=== PATIENT | female | born 1970 | race Caucasian/White ===

== ENCOUNTER 2016-12-10 12:36 | Emergency (ER) | payer MEDICAID ==
[~2016-12-10] VITALS: Ht 160 cm; Wt 79.9 kg
[2016-12-10 12:38] VITALS: BP 152/85
[2016-12-10] MEDS ORDERED: PROPARACAINE OPHTH 0.5%, 15ML ONE (12:47)
[2016-12-10] MEDS ORDERED: FLUORESCEIN OPHTHALMIC 1 MG STRIP ONE (12:47)
== END 2016-12-10 14:06 | disposition home or self-care (01) ==
LOC: ED 14:00
DX: H10.31 Unspecified acute conjunctivitis, right eye (principal)
CPT/HCPCS: 99283

== ENCOUNTER 2018-07-11 15:48 | Inpatient (IN) | payer MEDICAID, OTHER ==
[~2018-07-11] VITALS: Ht 161.3 cm; Wt 83.8 kg
[~2018-07-11 15:48] MED LIST: CEFOTETAN 2 GM ONE; DEXAMETHASONE 4 MG/ML, 1ML ONE; EPHEDRINE 50 MG/ML, 1ML ONE; GLYCOPYRROLATE 0.2MG/1ML, 5ML ONE; KETOROLAC 30 MG/1 ML ONE; NEOSTIGMINE 1 MG/ML, 10ML ONE; ROCURONIUM 10MG/ML,5ML ONE
[2018-07-11] MEDS ORDERED: BUPIVACAINE/PF-EPI 0.25% 1:200K SQ ONE (16:30)
[2018-07-11] MEDS ORDERED: LIDOCAINE 2%, 20ML SQ ONE (16:30)
[2018-07-11] MEDS ORDERED: CEFTRIAXONE PMX 1GM/50ML 50 ML ONE (16:47)
[2018-07-11] MEDS ORDERED: MORPHINE SULFATE 4 MG/ML, 1ML ONE ×2 (16:56→18:50)
[2018-07-11] MEDS ORDERED: ONDANSETRON 2MG/ML, 2ML ONE ×2 (16:57→20:25)
[2018-07-11 16:58] LABS: BASOPHILS # (AUTO) 0.03 x10^3/uL (0-0.1); BASOPHILS % (AUTO) 0 % (0-1); EOSINOPHILS # (AUTO) 0.19 x10^3/uL (0-0.4); EOSINOPHILS % (AUTO) 2 % (1-7); LYMPHOCYTES # (AUTO) 1.98 x10^3/uL (1-3.4); LYMPHOCYTES % (AUTO) 18 % (22-44); MD NO; MEAN CORPUSCULAR HGB CONC 33.4 g/dL (32.4-35.8); MEAN CORPUSCULAR VOLUME 92.8 fL (80-100); MEAN PLATELET VOLUME 7.5 fL (7.4-10.4); MONOCYTES # (AUTO) 0.62 x10^3/uL (0.2-0.8); MONOCYTES % (AUTO) 6 % (2-9); NEUTROPHILS # (AUTO) 8.32 x10^3/uL (1.8-6.8); NEUTROPHILS % (AUTO) 75 % (42-75); PLATELET COUNT 342 x10^3/uL (130-400); RED BLOOD COUNT 5.03 x10^6/uL (3.82-5.3); RED CELL DISTRIBUTION WIDTH 14.3 % (9.6-15.2)
[2018-07-11] MEDS ORDERED: CEFTRIAXONE PMX 1GM/50ML 50 ML IVPB ONE (17:00)
[2018-07-11] MEDS ORDERED: ONDANSETRON 2MG/ML, 2ML IVPush ONE (17:00)
[2018-07-11] MEDS ORDERED: VANCOMYCIN 1,600 MG in SODIUM CHLORIDE 0.9% 250 ML IV ONE (17:00)
[2018-07-11] MEDS ORDERED: SODIUM CHLORIDE FLUSH 10ML SYR IVF ONE (17:00)
[2018-07-11] MEDS ORDERED: VANCOMYCIN PER PHARMACY IV ONE (17:00)
[2018-07-11] MEDS: MORPHINE SULFATE 4 MG/ML, 1ML IV PRN ×2 (17:06→18:57)
[2018-07-11 17:10] LABS: ALBUMIN 4.8 g/dL (3.4-5.0); ANION GAP 7 mmol/L (5-15); CALCIUM 9.3 mg/dL (8.5-10.1); CHLORIDE 107 mmol/L (98-107)
[2018-07-11 17:13] LABS: ALANINE AMINOTRANSFERASE 35 U/L (12-78); ALKALINE PHOSPHATASE 81 U/L (45-117); BILIRUBIN,TOTAL 0.6 mg/dL (0.2-1.0); CREATININE 0.89 mg/dL (0.55-1.02); TOTAL PROTEIN 8.4 g/dL (6.4-8.2)
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
[2018-07-11] MEDS ORDERED: BISACODYL 10 MG SUPP PR PRN (18:00)
[2018-07-11] MEDS ORDERED: ONDANSETRON ODT 4 MG PO PRN (18:00)
[2018-07-11] MEDS ORDERED: VANCOMYCIN PER PHARMACY MC PRN (18:00)
[2018-07-11] MEDS ORDERED: MORPHINE SULFATE 4 MG/ML, 1ML IVPush PRN (18:00)
[2018-07-11] MEDS ORDERED: HYDROcodone/APAP 5/325 TABLET PO PRN (18:00)
[2018-07-11] MEDS ORDERED: ENALAPRILAT 1.25 MG/ML, 2ML IVPush PRN (18:00)
[2018-07-11] MEDS ORDERED: DOCUSATE 100 MG CAPSULE PO PRN (18:00)
[2018-07-11] MEDS ORDERED: POLYETHYLENE GLYCOL 17 GM PACKET PO PRN (18:00)
[2018-07-11] MEDS ORDERED: LABETALOL 5MG/ML, 20ML IVPush PRN (18:00)
--- NOTE | 2018-07-11 18:20 | NUR ---
DR. LUCIANO AT THE BEDSIDE TO DISCUSS SURGERY WITH THE PT. VSS.
--- NOTE | 2018-07-11 18:35 | NUR ---
REPORT TO ROXANA WILKES.
--- NOTE | 2018-07-11 18:37 | NUR ---
PT MOVED FROM E8 TO ROOM 16. VS UPDATED AND WNL.
[2018-07-11] MEDS ORDERED: BUPIVACAINE/PF 0.5% ONE (19:11)
--- NOTE | 2018-07-11 19:16 | NUR ---
tubal ligation in 2005 per pt
[2018-07-11] MEDS ORDERED: PHARMACOKINETIC MONITORING MC PRN (19:30)
[2018-07-11] MEDS ORDERED: FENTANYL PF 100 MCG/2ML ONE ×2 (19:55→20:41)
[2018-07-11] MEDS ORDERED: MIDAZOLAM 1 MG/ML, 2ML ONE (19:55)
[2018-07-11] MEDS ORDERED: LIDOCAINE 2%, 6 ML JEL.PF.APP MM ONE (19:57)
[2018-07-11] MEDS ORDERED: PROPOFOL 10 MG/ML, 20ML ONE (20:25)
[2018-07-11] MEDS ORDERED: DEXAMETHASONE 4 MG/ML, 1ML ONE (20:25)
[2018-07-11] MEDS ORDERED: CEFAZOLIN 1,000 MG ONE (20:25)
[2018-07-11] MEDS ORDERED: ACETAMINOPHEN 325 MG TABLET PO PRN (20:30)
[2018-07-11] MEDS ORDERED: ALBUTEROL/IPRATROPIUM 2.5MG/0.5MG, 3 ML NPPB PRN (20:30)
[2018-07-11] MEDS ORDERED: MIDAZOLAM 1 MG/ML, 2ML IV PRN (20:30)
[2018-07-11] MEDS ORDERED: OXYcodone 5 MG/5 ML ORAL.SOL UDC PO PRN (20:30)
[2018-07-11] MEDS ORDERED: ONDANSETRON 2MG/ML, 2ML IV PRN (20:30)
[2018-07-11] MEDS ORDERED: PROMETHAZINE 25 MG/ML, 1ML IV PRN (20:30)
[2018-07-11] MEDS ORDERED: HYDROmorphone 2 MG/ML, 1ML IVPush PRN (20:30)
[2018-07-11] MEDS ORDERED: SCOPOLAMINE PATCH, 1.5MG PATCH.TD72 TD PRN (20:30)
[2018-07-11] MEDS ORDERED: MEPERIDINE/PF 25MG/0.5ML IVPush PRN (20:30)
[2018-07-11] MEDS ORDERED: OXYcodone 5 MG/5 ML ORAL.SOL UDC ONE (20:41)
[2018-07-11] MEDS: FENTANYL PF 100 MCG/2ML IV PRN ×2 (20:45→20:51)
[2018-07-11] MEDS ORDERED: HYDROmorphone 1 MG/ML, 1ML AMP ONE (20:55)
[2018-07-11 21:34] VITALS: BP 155/87
[2018-07-11] MEDS ORDERED: HYDROmorphone 1 MG/ML, 1ML AMP IV PRN (22:30)
[2018-07-11] MEDS ORDERED: HYDROmorphone 2 MG/ML, 1ML ONE (23:14)
[2018-07-11] MEDS: SODIUM CHLORIDE 0.9% 1,000 ML IV SCH (23:38)
[2018-07-11] MEDS: NICOTINE 14MG/24 HR PATCH.TD24 TD SCH (23:38)
[2018-07-12] MEDS: AMPICILLIN/SULBACTAM 3 GM in SODIUM CHLORIDE 0.9% 100 ML IV SCH ×2 (00:59→08:19)
[2018-07-12 01:40] VITALS: BP 125/73
[2018-07-12] MEDS: HYDROcodone/APAP 10/325 MG TABLET PO PRN ×4 (03:29→21:22)
[2018-07-12 05:29] LABS: BASOPHILS # (AUTO) 0.01 x10^3/uL (0-0.1); BASOPHILS % (AUTO) 0 % (0-1); EOSINOPHILS % (AUTO) 0 % (1-7); LYMPHOCYTES # (AUTO) 0.55 x10^3/uL (1-3.4); LYMPHOCYTES % (AUTO) 6 % (22-44); MD NO; MEAN CORPUSCULAR HEMOGLOBIN 31.6 pg (27.0-34.8); MEAN CORPUSCULAR HGB CONC 33.8 g/dL (32.4-35.8); MEAN CORPUSCULAR VOLUME 93.3 fL (80-100); MEAN PLATELET VOLUME 7.6 fL (7.4-10.4); MONOCYTES # (AUTO) 0.09 x10^3/uL (0.2-0.8); MONOCYTES % (AUTO) 1 % (2-9); NEUTROPHILS % (AUTO) 93 % (42-75); PLATELET COUNT 303 x10^3/uL (130-400); RED BLOOD COUNT 4.32 x10^6/uL (3.82-5.3); RED CELL DISTRIBUTION WIDTH 14.4 % (9.6-15.2)
[2018-07-12 05:36] LABS: ANION GAP 3 mmol/L (5-15); CALCIUM 8.4 mg/dL (8.5-10.1); CHLORIDE 108 mmol/L (98-107)
[2018-07-12 05:37] LABS: CREATININE 0.91 mg/dL (0.55-1.02)
[2018-07-12] MEDS: VANCOMYCIN 1,600 MG in SODIUM CHLORIDE 0.9% 250 ML IV SCH ×2 (06:30→18:06)
[2018-07-12 06:34] VITALS: BP 114/73
[2018-07-12] MEDS ORDERED: AMPICILLIN/SULBACTAM 3 GM in SODIUM CHLORIDE 0.9% 50 ML IV SCH (08:29)
[2018-07-12] MEDS: SODIUM CHLORIDE 0.9% 1,000 ML IV SCH (09:42)
[2018-07-12 13:06] LABS: HEMOGLOBIN A1C 5.7 % (4.2-6.3)
[2018-07-12] MEDS: CALCIUM CARBONATE 500 MG TAB.CHEW PO PRN ×3 (13:43→21:14)
[2018-07-12] MEDS: AMPICILLIN/SULBACTAM 3 GM in SODIUM CHLORIDE 0.9% 50 ML IV SCH ×2 (13:51→19:55)
[2018-07-12 13:55] VITALS: BP 115/73
[2018-07-12 19:08] VITALS: BP 97/51
[2018-07-12] MEDS: NICOTINE 14MG/24 HR PATCH.TD24 TD SCH (21:15)
[2018-07-13 01:12] VITALS: BP 132/83
[2018-07-13] MEDS: CALCIUM CARBONATE 500 MG TAB.CHEW PO PRN (02:05)
[2018-07-13] MEDS: HYDROcodone/APAP 10/325 MG TABLET PO PRN ×4 (02:11→19:55)
[2018-07-13] MEDS: AMPICILLIN/SULBACTAM 3 GM in SODIUM CHLORIDE 0.9% 50 ML IV SCH ×5 (02:11→21:38)
[2018-07-13] MEDS: VANCOMYCIN 1,600 MG in SODIUM CHLORIDE 0.9% 250 ML IV SCH ×2 (06:20→18:57)
[2018-07-13 07:53] VITALS: BP 124/75
[2018-07-13 13:40] VITALS: BP 130/80
[2018-07-13 19:29] VITALS: BP 137/85
[2018-07-13] MEDS: NICOTINE 14MG/24 HR PATCH.TD24 TD SCH (21:38)
[2018-07-14 01:46] VITALS: BP 129/76
[2018-07-14] MEDS: AMPICILLIN/SULBACTAM 3 GM in SODIUM CHLORIDE 0.9% 50 ML IV SCH ×4 (02:58→21:02)
[2018-07-14] MEDS: ONDANSETRON 2MG/ML, 2ML IVPush PRN (04:06)
[2018-07-14] MEDS: VANCOMYCIN 1,600 MG in SODIUM CHLORIDE 0.9% 250 ML IV SCH (06:16)
[2018-07-14] MEDS: HYDROcodone/APAP 10/325 MG TABLET PO PRN (06:16)
[2018-07-14 06:22] LABS: ANION GAP 2 mmol/L (5-15); CALCIUM 8.5 mg/dL (8.5-10.1); CHLORIDE 107 mmol/L (98-107); CREATININE 0.74 mg/dL (0.55-1.02)
[2018-07-14 06:31] LABS: BASOPHILS # (AUTO) 0.03 x10^3/uL (0-0.1); BASOPHILS % (AUTO) 0 % (0-1); EOSINOPHILS % (AUTO) 2 % (1-7); LYMPHOCYTES # (AUTO) 2.58 x10^3/uL (1-3.4); LYMPHOCYTES % (AUTO) 30 % (22-44); MD NO; MEAN CORPUSCULAR HEMOGLOBIN 31.9 pg (27.0-34.8); MEAN CORPUSCULAR HGB CONC 33.9 g/dL (32.4-35.8); MEAN CORPUSCULAR VOLUME 93.9 fL (80-100); MONOCYTES % (AUTO) 7 % (2-9); NEUTROPHILS # (AUTO) 5.33 x10^3/uL (1.8-6.8); NEUTROPHILS % (AUTO) 61 % (42-75); PLATELET COUNT 263 x10^3/uL (130-400); RED BLOOD COUNT 3.62 x10^6/uL (3.82-5.3); RED CELL DISTRIBUTION WIDTH 14.6 % (9.6-15.2)
[2018-07-14 14:48] VITALS: BP 171/98
[2018-07-14 20:08] VITALS: BP 144/82
[2018-07-14] MEDS: NICOTINE 14MG/24 HR PATCH.TD24 TD SCH (21:02)
[2018-07-15] MEDS: AMPICILLIN/SULBACTAM 3 GM in SODIUM CHLORIDE 0.9% 50 ML IV SCH ×2 (02:53→09:44)
[2018-07-15 02:56] VITALS: BP 151/93
[2018-07-15] MEDS: ACETAMINOPHEN 325 MG TABLET PO PRN ×2 (02:58→09:58)
[2018-07-15] MEDS: CALCIUM CARBONATE 500 MG TAB.CHEW PO PRN (02:58)
[2018-07-15 06:05] LABS: BASOPHILS # (AUTO) 0.03 x10^3/uL (0-0.1); BASOPHILS % (AUTO) 0 % (0-1); EOSINOPHILS # (AUTO) 0.16 x10^3/uL (0-0.4); EOSINOPHILS % (AUTO) 2 % (1-7); LYMPHOCYTES # (AUTO) 2.02 x10^3/uL (1-3.4); LYMPHOCYTES % (AUTO) 29 % (22-44); MD NO; MEAN CORPUSCULAR HEMOGLOBIN 31.7 pg (27.0-34.8); MEAN CORPUSCULAR HGB CONC 34.2 g/dL (32.4-35.8); MEAN CORPUSCULAR VOLUME 92.7 fL (80-100); MEAN PLATELET VOLUME 7.9 fL (7.4-10.4); MONOCYTES % (AUTO) 9 % (2-9); NEUTROPHILS # (AUTO) 4.08 x10^3/uL (1.8-6.8); NEUTROPHILS % (AUTO) 59 % (42-75); PLATELET COUNT 275 x10^3/uL (130-400); RED BLOOD COUNT 3.74 x10^6/uL (3.82-5.3); RED CELL DISTRIBUTION WIDTH 13.9 % (9.6-15.2)
[2018-07-15 06:10] LABS: CHLORIDE 103 mmol/L (98-107)
[2018-07-15 06:20] LABS: ALANINE AMINOTRANSFERASE 62 U/L (12-78); ALBUMIN 3.1 g/dL (3.4-5.0); ALKALINE PHOSPHATASE 68 U/L (45-117); ANION GAP 4 mmol/L (5-15); BILIRUBIN,TOTAL 0.4 mg/dL (0.2-1.0); CALCIUM 8.7 mg/dL (8.5-10.1); CREATININE 0.84 mg/dL (0.55-1.02); TOTAL PROTEIN 6.2 g/dL (6.4-8.2)
[2018-07-15] MEDS: ONDANSETRON 2MG/ML, 2ML IVPush PRN (06:21)
[2018-07-15 06:31] LABS: HCT (SEDRATE) 34.7 % (34.6-47.8)
[2018-07-15 08:59] VITALS: BP 167/94
[2018-07-15] MEDS ORDERED: AMOXICILLIN 500 MG CAPSULE PO SCH (11:00)
[2018-07-15] MEDS ORDERED: ACET325T14 PO (11:07)
[2018-07-15] MEDS ORDERED: AMOX-291 PO (11:07)
== END 2018-07-15 12:34 | disposition home or self-care (01) | DRG 514 ==
LOC: ED 16:34 → EDIP 17:31 → 3NE 21:20
PROVIDERS: ADMIT Internal Medicine; ATTEND Internal Medicine
PROC: 0J9J0ZZ Drainage of Right Hand Subcutaneous Tissue and Fascia, Open Approach (ICD-10-PCS; principal; 2018-07-11 20:00)
DX: M65.141 Other infective (teno)synovitis, right hand (principal); K02.9 Dental caries, unspecified; I10 Essential (primary) hypertension; F41.9 Anxiety disorder, unspecified; F17.210 Nicotine dependence, cigarettes, uncomplicated; E66.9 Obesity, unspecified; D64.9 Anemia, unspecified; B95.0 Streptococcus, group A, as the cause of diseases classified elsewhere; S61.232A Puncture wound without foreign body of right middle finger without damage to nail, initial encounter; X58.XXXA Exposure to other specified factors, initial encounter; Y93.89 Activity, other specified; Y92.89 Other specified places as the place of occurrence of the external cause; Y99.8 Other external cause status
CPT/HCPCS: 36415; 70100; 73140; 99285; J3490; 80048; 80053; 83036; 85025; 85651; 87040; 87070; 87075; 87147; 87205; 96365; 96375; G0378; J0295; J0690; J0696; J1100; J1170; J1885; J2250; J2405; J2704; J2710; J3010; J3370; J7030; J7050

== ENCOUNTER 2018-12-01 11:46 | Emergency (ER) | payer SELFPAY ==
[~2018-12-01] VITALS: Ht 160 cm; Wt 80.0 kg
[2018-12-01 11:50] VITALS: BP 191/84
== END 2018-12-01 13:16 | disposition home or self-care (01) ==
LOC: ED 12:38
DX: S22.32XA Fracture of one rib, left side, initial encounter for closed fracture (principal); F17.200 Nicotine dependence, unspecified, uncomplicated; W18.30XA Fall on same level, unspecified, initial encounter; Y93.89 Activity, other specified; Y92.009 Unspecified place in unspecified non-institutional (private) residence as the place of occurrence of the external cause; Y99.8 Other external cause status
CPT/HCPCS: 81003; 99284